=== PATIENT | female | born 1990 | race American Indian/Alaskan Native ===

== ENCOUNTER 2018-05-18 04:40 | Inpatient (IN) | payer OTHER ==
[2018-05-18] MEDS ORDERED: BRETHINE SUB-Q PRN (06:34)
[2018-05-18] MEDS ORDERED: XYLOCAINE 2% INFILTRATI ONE ×2 (06:34→17:39)
[2018-05-18] MEDS ORDERED: BRETHINE IVP PRN (06:34)
[2018-05-18] MEDS ORDERED: LACTATED RINGERS 1,000 ML IV SCH ×2 (07:00→23:00)
[2018-05-18] MEDS ORDERED: PITOCin/NS 20 UNIT/1000ML DRIP 20 UNITS/1,000 ML BAG IV SCH (07:00)
[2018-05-18] MEDS ORDERED: AMPICILLIN/NS 2 GM/100 ML 2 GM/100 ML BAG IV ONE (07:00)
[2018-05-18 07:18] LABS: Hemoglobin 14.6 gm/dl (10.1-14.3); Mean Corpuscular HGB Conc 35 % (30-34); Mean Corpuscular Volume 84 fl (79-97); Platelet Count 192 K/mm3 (140-440); Red Blood Count 4.98 M/mm3 (3.65-5.03)
[2018-05-18] MEDS: STADOL IV PRN ×2 (07:40→09:49)
--- NOTE | 2018-05-18 10:00 | History and Physical Report ---
History of Present Illness Date of examination: 05/18/18 Date of admission: 05/18/18 07:27 Chief complaint: Contractions every 2-3 min History of present illness: 28yo Fe , SURJIT 05/31/2018 (ultrasound) 38 weeks 1 day, presents in spontaneous labor. A positive, Rubella Immune, VDRL nonreactive, HIV Negative, HBsAg Negative, GBS positive. Pt initiated early care with [facility] at 10+ weeks. She has been co-managed with [facility] d/t known Hyperthyroidism (TPU 50mg TID). Other risk factors include SST+ (FOB status unknown), Vitamin D deficiency (D3 supplementation). She was seen by [facility] with a Negative EKG/ECHO per request of [facility]. Past History Past Medical History: thyroid disease (Hyperthyroidism; TPU 50 TID) Past Surgical History: no surgical history [employer]IC COORDINATOR History: denies: abnormal PAP smear, chlamydia, gonorrhea, hepatitis B, hepatitis C, herpes, HIV, syphilis, trichomonas Social history: no significant social history, , lives with family, full code. denies: smoking, alcohol abuse, prescription drug abuse, IV drug use - Obstetrical History Expected Date of Delivery: 05/31/18 (ultrasound) Actual Gestation: 38 Week(s) 1 Day(s) : 2 Para: 0 Hx # Term Pregnancies: 0 Number of Pregnancies: 0 Spontaneous Abortions: 1 Induced : 0 Number of Living Children: 0 Medications and Allergies Allergies Allergy/AdvReac Type Severity Reaction Status Date / Time No Known Allergies Allergy Verified 05/18/18 06:33 Active Meds: Active Medications Butorphanol Tartrate (Stadol) 2 mg IV Q2H PRN PRN Reason: Pain , Severe (7-10) Last Admin: 05/18/18 09:49 Dose: 2 mg Documented by: Ephedrine Sulfate (Ephedrine Sulfate) 10 mg IV Q2M PRN PRN Reason: Hypotension Ampicillin Sodium (Ampicillin/Ns 1 Gm/50 Ml) 1 gm in 50 mls @ 100 mls/hr IV Q4H KRALA; Protocol Lactated Ringer's (Lactated Ringers) 1,000 mls @ 125 mls/hr IV DIRECT KARLA Oxytocin/Sodium Chloride (Pitocin/Ns 20 Unit/1000ml Drip) 20 units in 1,000 mls @ 125 mls/hr IV DIRECT KARLA Mineral Oil (Mineral Oil) 30 ml PO QHS PRN PRN Reason: Constipation Terbutaline Sulfate (Brethine) 0.25 mg SUB-Q ONCE PRN PRN Reason: Hyperstimulation/Hypertonicity Terbutaline Sulfate (Brethine) 0.25 mg IVP ONCE PRN PRN Reason: Hyperstimulation/Hypertonicity Review of Systems Eyes: normal appearance Cardiovascular: no chest pain, no shortness of breath Respiratory: no shortness of breath Breasts: normal Gastrointestinal: no nausea, no vomiting, no diarrhea, no constipation Genitourinary: normal appearance, contractions, no vaginal bleeding, no vaginal discharge, no leakage of fluid, no dysuria, no genital sores Integumentary: no rash, no sores, no lesions - Vital Signs Vital signs: Vital Signs Pulse BP 86 129/76 05/18/18 06:27 05/18/18 06:27 Temp Pulse Resp BP Pulse Ox 98.5 F 91 H 18 142/77 05/18/18 06:30 05/18/18 07:54 05/18/18 09:49 05/18/18 07:54 - Physical Exam Breasts: Positive: normal Cardiovascular: Regular rate, Normal S1, Normal S2, No murmurs Lungs: Positive: Clear to auscultation, Normal air movement Abdomen: Positive: normal appearance, soft, normal bowel sounds, other (gravid) Genitourinary (Female): Positive: normal external genitalia, normal perenium Vulva: both: normal Vagina: Positive: normal moisture Uterus: Positive: enlarged (Gravid; S=D) Anus/Rectum: Positive: normal perianal skin Extremities: Positive: normal Deep Tendon Reflex Grade: Normal +2 - Obstetrical FHR: category 1 Uterine Contraction Monitor Mode: External Cervical Dilatation: 4 (Per sugar cane planter) Cervical Effacement Percentage: 80 station: -2 Uterine Contraction Frequency (min): 2-3 Uterine Contraction Pattern: Regular Uterine Tone Measurement Phase: Resting Uterine Contraction Intensity: Moderate Results Result Diagrams: 05/18/18 06:50 Abnormal lab results 05/18/18 Range/Units 06:50 WBC 17.2 H (4.5-11.0) K/mm3 Hgb 14.6 H (10.1-14.3) gm/dl MCHC 35 H (30-34) % All other labs normal. Assessment and Plan A: Term IUP at 38w1d Spontaneous labor Category 1 tacing GBS positive Hyperthyroidism; TPU 50 TID P: Admit to L&D; Routine labor orders May have IV pain med/epidural PRN Anticipate
[2018-05-18] MEDS ORDERED: AMPICILLIN/NS 1 GM/50 ML 1 GM/50 ML BAG IV SCH (11:00)
[2018-05-18] MEDS: PITOCin/NS 30 UNIT/500ML 30 UNITS/500 ML BAG IV SCH ×2 (11:59→14:06)
[2018-05-18] MEDS ORDERED: NARCAN 2 MG/2 ML IV PRN (12:52)
[2018-05-18] MEDS ORDERED: fentaNYL-BUPIV 2 MCG/ML-0.125% 200 MCG/100 ML BAG EPIDURAL SCH (13:00)
--- NOTE | 2018-05-18 19:45 | Procedure Note ---
OB Delivery Note - Delivery Date of Delivery: 05/18/18 Surgeon: YENY WOODWARD Estimated blood loss: other (250 cc) - Vaginal Delivery presentation: vertex Delivery position: OA Delivery induction: none Delivery augmentation: pitocin Delivery monitor: external FHT, external uterine Route of delivery: Delivery placenta: spontaneous Delivery cord: 3 umbilical vessels, other (short cord, cord wrapped around ankle and foot) Episiotomy: midline Delivery repair: vicryl Anesthesia: local, epidural Delivery comments: Spontaneous vaginal delivery at 17:52 of liveborn male infant weighing 6 lb. 2 oz. over 2nd degree midline episiotomy with apgars of 8/9. NICU was present for delivery due to variable FHR decelerations just prior to delivery. Baby deliv ered gently and easily and cried immediately after delivery. Baby was placed immediately on mother's chest and was dried and bulb suctioned. 3 vessel cord was double clamped and cut after cessation of pulsation. Spontaneous delivery of intact placenta and membranes at 17:59 by mao mechanism. EBL 250 ml. Pitocin to IV fluids after delivery of placenta. Fundus firm and midline. 2nd degree midline episiotomy repaired with 2-0 vicryl in usual sterile fashion. Vaginal sweep negative. Mother and baby stable in birthing room.
[2018-05-18] MEDS ORDERED: SODIUM CHLORIDE FLUSH SYRINGE 10 ML IV NR (20:00)
[2018-05-18] MEDS ORDERED: MINERAL OIL PO PRN (22:00)
[2018-05-19] MEDS ORDERED: TUCKS PAD TP PRN (00:19)
[2018-05-19] MEDS: IBUPROFEN PO SCH ×3 (00:57→23:52)
[2018-05-19] MEDS: NORCO 5/325 PO PRN ×3 (06:13→19:50)
[2018-05-19 07:47] LABS: Hematocrit 30.6 % (30.3-42.9); Hemoglobin 10.5 gm/dl (10.1-14.3)
[2018-05-19] MEDS ORDERED: DERMOPLAST TP PRN (08:10)
[2018-05-19] MEDS: FEOSOL PO SCH (13:43)
--- NOTE | 2018-05-19 14:04 | Progress Note ---
Assessment and Plan A: day 1 S/P . Anemia. P: Supplement with iron. Anticipate discharge tomorrow. Subjective - Subjective Date of service: 05/19/18 Principal diagnosis: day 1 S/P spontaneous vaginal delivery Interval history: day 1 S/P spontaneous vaginal delivery. Patient is doing well. /bottlefeeding. Patient reports a small amount of lochia. Patient is voiding without difficulty, ambulating well, tolerating a regular diet, and passing gas. Patient denies headache, chest pain, cough, shortness of breath, leg pain, dizziness, or any other problems. Patient reports: appetite normal, voiding normally, pain well controlled, flatus, ambulating normally, no dizzy ambulation, no nauseated [place]: doing well Objective - Vital Signs Latest vital signs: Vital Signs Temp Pulse Resp BP Pulse Ox 05/19/18 08:50 98.4 F 85 18 100/52 98 05/19/18 04:11 98.1 F 85 17 97/45 98 05/18/18 23:56 99.6 F 116 H 18 121/57 97 05/18/18 20:12 99.5 F 86 18 118/67 96 05/18/18 19:35 99 H 129/58 97 05/18/18 19:30 99 H 97 05/18/18 19:25 104 H 97 05/18/18 19:23 86 93 05/18/18 19:20 103 H 124/60 96 05/18/18 19:15 94 H 97 05/18/18 19:12 90 93 05/18/18 19:10 92 H 97 05/18/18 19:07 79 89 05/18/18 19:05 90 119/55 96 05/18/18 19:02 94 H 92 05/18/18 19:00 89 98 05/18/18 18:55 90 99 05/18/18 18:50 94 H 150/63 05/18/18 18:49 92 H 100 05/18/18 18:44 96 H 100 05/18/18 18:42 106 H 94 05/18/18 18:39 99 H 100 05/18/18 18:35 97 H 140/79 05/18/18 18:34 95 H 100 05/18/18 18:33 100 H 93 05/18/18 18:29 94 H 100 12/21/18 18:24 89 99 12/18 18:19 97 H 99 05/18/18 18:14 91 H 98 05/18/18 18:09 104 H 98 05/18/18 18:05 108 H 126/74 05/18/18 17:38 93 H 150/67 18 17:26 80 81 L 18 17:25 80 100 05/18/18 17:20 90 100 18 17:15 84 100 18 17:10 95 H 99 05/18/18 17:05 84 127/67 99 18 17:00 80 99 05/18/18 16:55 76 99 18 16:50 70 99 18 16:45 87 99 18 16:40 93 H 99 18 16:35 91 H 131/64 100 18 16:30 107 H 100 18 16:25 94 H 99 18 16:20 90 99 18 16:15 97 H 99 18 16:10 80 99 18 16:05 81 123/67 100 18 16:00 91 H 99 18 15:55 97 H 98 18 15:50 98 H 99 18 15:45 86 99 18 15:40 86 99 18 15:35 83 127/70 100 18 15:32 99 H 72 L 05/18/18 15:30 90 98 18 15:25 74 97 05/18/18 15:20 78 99 18 15:15 74 99 18 15:10 79 98 05/18/18 15:06 74 117/55 18 15:05 74 98 05/18/18 15:00 74 98 05/18/18 14:55 73 98 05/18/18 14:50 72 98 18 14:45 71 98 05/18/18 14:40 73 98 05/18/18 14:36 72 118/57 18 14:35 74 98 05/18/18 14:30 79 99 12/21/18 14:25 75 98 05/18/18 14:20 71 98 05/18/18 14:15 79 98 05/18/18 14:10 75 98 05/18/18 14:05 70 117/57 99 Intake and Output 05/18/18 05/19/18 05/19/18 23:59 07:59 15:59 Intake Total 440 480 Output Total 1150 500 Balance -1150 -60 480 Intake: Oral 440 120 Intake, Free Water 360 Output: Urine 1150 500 Indwelling Catheter 500 500 Void 650 Other: Total, Intake Amount 440 120 Total, Output Amount 650 500 # Voids Indwelling Catheter 2 1 Void 1 Estimated Blood Loss 250 - Exam Abdomen: Present: normal appearance, soft. Absent: distention, tenderness, guarding, rigidity Uterus: Present: normal, firm, bogginess, tenderness. Absent: fundal height below umbilicus Extremities: Present: normal. Absent: tenderness, edema
[2018-05-20] MEDS: IBUPROFEN PO SCH (06:46)
[2018-05-20] MEDS: NORCO 5/325 PO PRN (07:44)
--- NOTE | 2018-05-20 10:16 | Progress Note ---
Assessment and Plan A: day 2 S/P . Anemia. P: Discharge patient home today. Advised patient to continue taking her vitamins and iron supplement at home. Rx Ferrous Sulfate 325 mg, #30, 1 po daily with 1 RF called to [facility] pharmacy on [address] and patient was instructed to picker and packer the Rx. Rx for Motrin 800 mg and Percocet were written for patient by MD and are on patient's chart, to be given to patient by nurse at hospital discharge. discharge instructions and warning signs were discussed with patient in detail. Advised patient re: care of perineal stitches. Advised patient to avoid driving, intercourse, lifting, and heavy housework. Advised patient to follow up at [facility] in 6 weeks for exam. Patient voiced understanding of all instructions. Subjective - Subjective Date of service: 05/20/18 Principal diagnosis: day 2 S/P spontaneous vaginal delivery Interval history: day 2 S/P spontaneous vaginal delivery. Patient is doing well; she desires discharge today. /bottlefeeding. Patient reports a small amount of lochia. Patient is voiding without difficulty, ambulating well, tolerating a regular diet, and passing gas. Patient denies headache, chest pain, cough, shortness of breath, leg pain, dizziness, or any other problems. She states pain medication is working well. She has mild anemia and has been receiving iron supplements for this. Patient reports: appetite normal, voiding normally, pain well controlled, flatus, ambulating normally, no dizzy ambulation, no nauseated : doing well Objective - Vital Signs Latest vital signs: Vital Signs Temp Pulse Resp BP BP Pulse Ox 05/20/18 08:52 98.5 F 76 18 103/54 99 05/20/18 00:38 98.4 F 80 16 113/58 05/19/18 19:50 18 05/19/18 15:54 98.5 F 87 18 126/55 98 05/19/18 13:02 99.0 F 90 18 104/44 98 Intake and Output 05/19/18 05/20/18 05/20/18 23:59 07:59 15:59 Intake Total 1080 600 240 Output Total 800 1 Balance 280 600 239 Intake: Oral 360 240 Intake, Free Water 720 600 Output: Urine 800 1 Indwelling Catheter 800 Void 1 Other: Total, Intake Amount 360 240 Total, Output Amount 800 1 # Voids Void 1 - Exam Cardiovascular: Present: Regular rate, Normal S1, Normal S2 Lungs: Present: Clear to auscultation Abdomen: Present: normal appearance, soft. Absent: distention, tenderness, guarding, rigidity Uterus: Present: normal, firm, fundal height below umbilicus. Absent: bogginess, tenderness Extremities: Present: normal. Absent: tenderness, edema
--- NOTE | 2018-05-20 10:19 | Discharge Summary ---
Providers - Providers Date of Admission: 05/18/18 07:27 Date of discharge: 05/20/18 Attending physician: LUCRECIA MAJANO MD None Primary care physician: LUCRECIA MAJANO MD Hospitalization Reason for admission: active labor Delivery: Episiotomy: midline Other procedures: none complications: none Discharge diagnosis: IUP at term delivered [place] baby: male Pertinent studies: Labs Hospital course: Normal hospital course. Condition at discharge: Good Disposition: DC-01 TO HOME OR SELFCARE Plan - Discharge Medications Prescriptions: Ibuprofen 800 mg PO Q6H PRN 10 Days #30 tablet MDD 3200mg PRN Reason: Pain, Moderate (4-6) oxyCODONE /ACETAMINOPHEN [Percocet 5/325] 1 tab PO Q4HR PRN 14 Days #30 tab PRN Reason: Pain, Moderate (4-6) - Provider Discharge Summary Activity: routine, no sex for 6 weeks, no strenuous exercise Diet: routine Instructions: routine Additional instructions: Call your doctor immediately for: * Fever > 100.5 * Heavy vaginal bleeding ( >1 pad per hour) * Severe persistent headache * Shortness of breath * Reddened, hot, painful area to leg or breast - Follow up plan Follow up: LUCRECIA MAJANO MD [Primary Care Provider] - 6 Weeks
[2018-05-20] MEDS: FEOSOL PO SCH (10:41)
[2018-05-20 17:03] VITALS: BP 114/59
== END 2018-05-20 16:35 | disposition home or self-care (01) | DRG 806 ==
LOC: TRG 04:40 → LD 07:27 → OB 20:27
PROVIDERS: ADMIT Obstetrics & Gynecology; ATTEND Obstetrics & Gynecology
PROC: 10E0XZZ Delivery of Products of Conception, External Approach (ICD-10-PCS; principal; 2018-05-18)
PROC: 0W8NXZZ Division of Female Perineum, External Approach (ICD-10-PCS; 2018-05-18)
PROC: 3E0R3BZ Introduction of Anesthetic Agent into Spinal Canal, Percutaneous Approach (ICD-10-PCS; 2018-05-18)
PROC: 00HU33Z Insertion of Infusion Device into Spinal Canal, Percutaneous Approach (ICD-10-PCS; 2018-05-18)
DX: O69.3XX0 Labor and delivery complicated by short cord, not applicable or unspecified (principal); Z37.0 Single live birth; O99.02 Anemia complicating childbirth; D64.9 Anemia, unspecified; O99.824 Streptococcus B carrier state complicating childbirth; O99.284 Endocrine, nutritional and metabolic diseases complicating childbirth; D62 Acute posthemorrhagic anemia; E05.90 Thyrotoxicosis, unspecified without thyrotoxic crisis or storm; O76 Abnormality in fetal heart rate and rhythm complicating labor and delivery; Z68.38 Body mass index [BMI] 38.0-38.9, adult
CPT/HCPCS: 36415; 85014; 85018; 85027; 86592; 86803; 86850; 86900; 86901; 87806; G0378; J0290; J0595; J2590; J7120